=== PATIENT | male | born 1980 | race Caucasian/White ===

== ENCOUNTER 2019-02-12 04:52 | Emergency (ER) | payer OTHER ==
[~2019-02-12] VITALS: Ht 190.5 cm; Wt 99.8 kg
[2019-02-12 05:29] LABS: BASOPHILS 1.2 % (0.0-2.0); EOSINOPHILS 10.2 % (0.0-3.0); HEMATOCRIT 43.7 % (42.0-52.0); HEMOGLOBIN 14.9 gm/dL (14.0-18.0); LYMPHOCYTES 23.5 % (24.0-44.0); MCH 29.6 pg (26.0-34.0); MCHC 34.2 g/dL (28.0-37.0); MCV 86.6 fL (80.0-100.0); MONOCYTES 10.9 % (1.0-8.0); PLATELET COUNT 233 thou/uL (150-400); POLYS 54.2 % (36.0-66.0); RBC 5.04 mil/uL (4.50-6.00); RDW 13.3 % (10.5-14.5); WBC 7.4 thou/uL (4.0-11.0)
[2019-02-12 05:38] LABS: ANION GAP 11 mmol/L (7-16); BUN 18 mg/dL (7-18); CALCIUM 9.1 mg/dL (8.5-10.1); CHLORIDE 102 mmol/L (98-107); CO2 24 mmol/L (21-32); CREATININE 1.3 mg/dL (0.7-1.3); GLUCOSE 115 mg/dL (74-106); POTASSIUM 4.7 mmol/L (3.5-5.1); SODIUM 137 mmol/L (136-145)
[2019-02-12 05:45] LABS: TROPONIN-I <0.06 ng/mL (<0.06)
[2019-02-12] MEDS ORDERED: PROTONIX40 M1 PO (06:07)
[2019-02-12 06:19] VITALS: BP 127/84
--- NOTE | 2019-02-12 08:42 | EKG ---
[facility] [place] [address] ELECTROCARDIOGRAM REPORT Name: BELINDA JAUREGUI Room #: DEP ELENA Ng#: [id number] ������������������ Admission: 02/12/19 ������������������ Attend Phys: Discharge: 02/12/19 ������������������ Date of : 84 Report #: [id number] ����������������������������������������������������������������� [id number] THIS REPORT FOR: //name// [facility] ED Test Date: 2019-02-12 Test Time: 05:04:12 Pat Name: BELINDA JAUREGUI Department: Room: Gender: Nursing Unit Manager: ROSE MARY : 1980 Requested By: Caleb Iverson Order Number: [id number] MD: Dago Recinos Measurements Intervals Ovid Rate: 75 P: 68 RI: 135 QRS: -2 QRSD: 102 T: 15 QT: 396 QTc: 443 Interpretive Statements Sinus rhythm RSR' in V1 or V2, probably normal variant No previous ECG available for comparison Electronically Signed On 02-12-2019 8:42:03 CDT by Dgao Recinos [email or web address] ��������������������������������������������� <ELECTRONICALLY SIGNED> ���������������������������������������� By: Dago Recinos MD, [facility] ��������������������������������������������� 02/12/19 [phone] Dago Recinos MD, FACC /EPI
== END 2019-02-12 06:19 | disposition home or self-care (01) ==
LOC: ER 04:52
PROVIDERS: Emergency Medicine
DX: R07.89 Other chest pain (principal); Z91.013 Allergy to seafood